=== PATIENT | female | born 1940 ===

== ENCOUNTER 2018-12-12 14:20 | Outpatient (CLI) | payer MEDICARE, OTHER | END 2018-12-12 14:21 | disposition home or self-care (01) | LOC: C.RADIC 14:20 ==

== ENCOUNTER 2018-12-16 11:15 | Outpatient (CLI) | payer MEDICARE, OTHER | END 2018-12-16 11:16 | disposition home or self-care (01) | LOC: C.CTH 11:15 ==

== ENCOUNTER 2019-03-02 13:15 | Outpatient (CLI) | payer MEDICARE, OTHER | END 2019-03-02 13:16 | disposition home or self-care (01) | LOC: C.USIC 13:15 ==